=== PATIENT | female | born 1995 | race Caucasian/White ===

== ENCOUNTER 2016-09-12 10:04 | Emergency (ER) | payer BC ==
[2016-09-12] MEDS ORDERED: NS 0.9% 1000 ML* 1,000 ML IV ONE (10:28)
[2016-09-12 11:25] LABS: Add Diff/Slide Review? Slide Review Added; Comments Flag Yes; Hematocrit 47 % (35-47); Hemoglobin 15.6 g/dl (12.0-16.0); Mean Corpuscular HGB Conc 34 g/dl (31-36); Mean Corpuscular Hemoglobin 33 pg (27-31); Mean Corpuscular Volume 98 fL (80-97); Mean Platelet Volume 9 um3 (7.4-10.4); Red Blood Count 4.74 10^6/ul (4.0-5.4); Red Cell Distribution Width 12 % (10.5-15); White Blood Count 15.5 10^3/ul (3.5-10.8)
[2016-09-12 11:41] LABS: ALT 9 U/L (7-52); Albumin 4.4 g/dL (3.2-5.2); Alkaline Phosphatase 60 U/L (34-104); BUN/Creatinine Ratio 14.9 (8-20); Blood Urea Nitrogen 11 mg/dL (6-24); CO2 Carbon Dioxide 24 mmol/L (22-32); Calcium 9.3 mg/dL (8.6-10.3); Chloride 106 mmol/L (101-111); EGFR African American 128.7 (>60); EGFR Non-African American 100.1 (>60); Globulin 3.1 g/dL (2-4); Glucose 108 mg/dL (70-100); Sodium 138 mmol/L (133-145); Total Protein 7.5 g/dL (6.4-8.9)
[2016-09-12 13:01] LABS: AST 34 U/L (13-39); Anion Gap 8 mmol/L (2-11); Magnesium 2.2 mg/dL (1.9-2.7); Potassium 4.4 mmol/L (3.5-5.0)
[2016-09-12] MEDS ORDERED: Ondansetron INJ* 2 MG/ML VIAL IV ONE (13:10)
[2016-09-12 13:31] LABS: Urine Bacteria Absent (Absent); Urine Bilirubin Negative (Negative); Urine Glucose Negative (Negative); Urine Nitrite Negative (Negative)
[2016-09-12 13:35] LABS: Hematocrit 44 % (35-47); Hemoglobin 14.3 g/dl (12.0-16.0); Mean Corpuscular HGB Conc 33 g/dl (31-36); Mean Corpuscular Hemoglobin 33 pg (27-31); Mean Corpuscular Volume 99 fL (80-97); Mean Platelet Volume 8 um3 (7.4-10.4); Red Blood Count 4.41 10^6/ul (4.0-5.4); Red Cell Distribution Width 13 % (10.5-15); White Blood Count 17.4 10^3/ul (3.5-10.8)
[2016-09-12] MEDS ORDERED: Ciprofloxacin TAB* 500 MG PO ONE (14:27)
[2016-09-12 14:35] VITALS: BP 101/55
--- NOTE | 2016-10-09 14:50 | ED ---
Shamar Durham SooYoung, scribed for Jovany Paris MD on 09/12/16 at 1146 . GI/ HPI - HPI Summary HPI Summary: A 21 y/o F presents to ED with c/o abd pain onset this AM [employer]. Associated sz: brief syncope without LOC; n/v/d; chills; heavy diaphoresis; mild melena - bright red blood - at 1100. Denies hemesis. At bedside, pain is still present but no longer constant. She notes taking ABX for bacterial vaginosis two weeks ago. Pt played soccer yesterday; fell landed on her back and wrist. [facility]: approx 09/05/16. Denies recent international travel. Pt swam in [facility] [place] yesterday. - History of Current Complaint Chief Complaint: EDSyncope Time Seen by Provider: 09/12/16 11:02 Stated Complaint: VOMITING,SYNCOPE Hx Obtained From: Patient, Family/Slag Worker Onset/Duration: Started Hours Ago, Still Present Timing: Constant Severity: Moderate Current Severity: Moderate Pain Intensity: 4 - out of 10 Associated Signs and Symptoms: Positive: Syncope, Nausea, Vomiting, Blood w/ Stool, Diarrhea, Diaphoresis, Chills, Abdominal Pain, Other: - neg: hemesis Additional Signs & Symptoms: Negative: Recent Travel - Allergy/Home Medications Allergies/Adverse Reactions: Allergies Allergy/AdvReac Type Severity Reaction Status Date / Time No Known Allergies Allergy Verified 01/06/15 17:00 PMH/Surg Hx/FS Hx/Imm Hx Previously Healthy: Yes Endocrine/Hematology History: Denies: Hx Diabetes Cardiovascular History: Denies: Hx Hypertension, Hx Pacemaker/ICD History: Denies: Hx Renal Disease Sensory History: Denies: Hx Hearing Aid Psychiatric History: Denies: Hx Panic Disorder - Surgical History Surgery Procedure, Year, and Place: HERNIA -@ 7[facility] Infectious Disease History: No Infectious Disease History: Denies: Traveled Outside the [place] in Last 30 Days - Family History Known Family History: Positive: Cardiac Disease - grandfather, Hypertension - grandparents Negative: Diabetes - Social History Occupation: Student Lives: With Family Alcohol Use: Weekly Alcohol Amount: socially Hx Substance Use: No Substance Use Type: Reports: None Hx Tobacco Use: Yes Smoking Status (MU): Current Some Day Smoker Review of Systems Positive: Chills, Skin Diaphoresis. Negative: Fever Negative: Erythema Negative: Sore Throat Negative: Chest Pain Negative: Shortness Of Breath, Cough Positive: Abdominal Pain, Vomiting, Diarrhea, Nausea, Other - pos: melena; denies: hemesis Negative: dysuria, hematuria Negative: Myalgia, Edema Negative: Rash Neurological: Other - neg: dizziness Positive: Syncope All Other Systems Reviewed And Are Negative: Yes Physical Exam - Summary Physical Exam Summary: Constitutional: Well-developed, Well-nourished, Alert. (-) Distressed Skin: Warm, Dry HENT: Normocephalic; Atraumatic Eyes: Conjunctiva normal Neck: Musculoskeletal ROM normal neck. (-) JVD, (-) Stridor, (-) Tracheal deviation Cardio: Rhythm regular, rate normal, Heart sounds normal; Intact distal pulses; The pedal pulses are 2+ and symmetric. Radial pulses are 2+ and symmetric. (-) Murmur Pulmonary/Chest wall: Effort normal. (-) Respiratory distress, (-) Wheezes, (-) Rales Abd: Soft, (-) Distension, (-) Guarding, (-) Rebound; VERY MILD LLQ TENDERNESS Musculoskeletal: (-) Edema Lymph: (-) Cervical adenopathy Neuro: Alert, Oriented x3 Psych: Mood and affect Normal Triage Information Reviewed: Yes Vital Signs On Initial Exam: Initial Vitals Temp Pulse Resp BP Pulse Ox 98.2 F 73 22 102/62 100 09/12/16 10:05 09/12/16 10:05 09/12/16 10:05 09/12/16 10:05 09/12/16 10:05 Vital Signs Reviewed: Yes - Gus Coma Scale Coma Scale Total: 15 Diagnostics - Vital Signs Vital Signs Temp Pulse Resp BP Pulse Ox 09/12/16 11:03 78 99 09/12/16 10:41 107/57 09/12/16 10:37 77 24 99 09/12/16 10:30 118/77 100 09/12/16 10:29 83 12 98 09/12/16 10:09 98.2 F 70 22 102/62 100 09/12/16 10:05 98.2 F 73 22 102/62 100 - Laboratory Lab Results: Lab Results 09/12/16 09/12/16 09/12/16 Range/Units 11:18 11:18 11:18 WBC 15.5 H (3.5-10.8) 10^3/ul RBC 4.74 (4.0-5.4) 10^6/ul Hgb 15.6 (12.0-16.0) g/dl Hct 47 (35-47) % MCV 98 H (80-97) fL MCH 33 H (27-31) pg MCHC 34 (31-36) g/dl RDW 12 (10.5-15) % Plt Count 239 (150-450) 10^3/ul MPV 9 (7.4-10.4) um3 Neut % (Auto) 89.5 H (38-83) % Lymph % (Auto) 6.0 L (25-47) % Menard % (Auto) 4.1 (1-9) % Eos % (Auto) 0.2 (0-6) % Baso % (Auto) 0.2 (0-2) % Absolute Neuts (auto) 13.9 H (1.5-7.7) 10^3/ul Absolute Lymphs (auto) 0.9 L (1.0-4.8) 10^3/ul Absolute Monos (auto) 0.6 (0-0.8) 10^3/ul Absolute Eos (auto) 0 (0-0.6) 10^3/ul Absolute Basos (auto) 0 (0-0.2) 10^3/ul Absolute Nucleated RBC 0.01 10^3/ul Nucleated RBC % 0 Sodium 138 (133-145) mmol/L Potassium Pending Chloride 106 (101-111) mmol/L Carbon Dioxide 24 (22-32) mmol/L Anion Gap Pending BUN 11 (6-24) mg/dL Creatinine 0.74 (0.51-0.95) mg/dL Est GFR ( Amer) 128.7 (>60) Est GFR (Non-Af Amer) 100.1 (>60) BUN/Creatinine Ratio 14.9 (8-20) Glucose 108 H (70-100) mg/dL Lactic Acid 2.4 H* (0.5-2.0) mmol/L Calcium 9.3 (8.6-10.3) mg/dL Magnesium Pending Total Bilirubin 0.50 (0.2-1.0) mg/dL AST Pending ALT 9 (7-52) U/L Alkaline Phosphatase 60 (34-104) U/L Total Protein 7.5 (6.4-8.9) g/dL Albumin 4.4 (3.2-5.2) g/dL Globulin 3.1 (2-4) g/dL Albumin/Globulin Ratio 1.4 (1-3) TSH Pending Result Diagrams: 09/12/16 13:25 09/12/16 11:18 Lab Statement: Any lab studies that have been ordered have been reviewed, and results considered in the medical decision making process. GIGU Course/Dx - Course Assessment/Plan: Pt is a 21 y/o F presenting with abd pain onset this AM. Associated sx: brief syncope without LOC; n/v/d; chills; heavy diaphoresis; mild melena - bright red blood - at 1100. Denies hemesis. [facility]: approx 09/05/16. Denies recent international travel. Pt swam in [facility] yesterday. Pt given fluids, Cipro, Zofran in ED. Bloody diarrhea could indicate e coli, cholera, giardia. Will send stool sample for testing. Will treat empirically with ABX. Lactic acid is 2.4. UA results show blood, RBC and trace ketones. - Diagnoses Provider Diagnoses: Dehydration, Bloody diarrhea, Gastroenteritis, Syncope Discharge - Discharge Plan Condition: Stable Disposition: HOME Prescriptions: Ciprofloxacin TAB* [Cipro 500 MG TAB*] 500 mg PO BID #20 tab Ondansetron ODT TAB* [Zofran 4 MG Odt TAB*] 4 mg PO Q8H PRN #12 tab.odt PRN Reason: Nausea/Vomiting Patient Education Materials: Ciprofloxacin (By mouth), Ondansetron (By mouth), Gastroenteritis (ED), Dehydration (ED), Syncope (ED) Forms: *Work Release Referrals: Ceasar Augustin NP [Primary Care Provider] - 2 Days Additional Instructions: Follow up with your primary care provider in the next two days. Please return to ED if you experience new or worsening symptoms. The documentation as recorded by the Shamar su SooYoung accurately reflects the service I personally performed and the decisions made by , Jovany Paris MD.
== END 2016-09-12 14:50 | disposition home or self-care (01) ==
LOC: ED 10:04
DX: E86.0 Dehydration (principal); K92.1 Melena; K52.9 Noninfective gastroenteritis and colitis, unspecified; R55 Syncope and collapse; Z72.0 Tobacco use; Z32.02 Encounter for pregnancy test, result negative
CPT/HCPCS: 36415; 80053; 81003; 81015; 83605; 83735; 84443; 84702; 85025; 85027; 87045; 87046; 87077; 96361; 96374; 99283; A9270-GY; J2405